=== PATIENT | male | born 1965 | race Caucasian/White ===

== ENCOUNTER 2017-12-13 10:51 | Inpatient (IN) | payer OTHER ==
[~2017-12-13] VITALS: Ht 170.2 cm; Wt 86.2 kg
--- NOTE | ~2017-12-13 | HC ---
[facility] [place] [address] CONSULTATION Name: KAY ALLEN Nayan Room #: 364-P [facility] M.R.#: [id number] Admission: 12/13/17 Attend Phys: Huy Jung MD Discharge: 12/14/17 Date of : 69 Report #: [id number] THIS REPORT FOR: //name// CC: Jeramie Jung REASON FOR CONSULTATION: Diaphoresis, chest pain. 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 Originally, underwent stenting in 2002 at the age of 38 when he presented with unstable angina. He had followup stenting of the diagonal branch in 2008 when he presented with midsternal chest discomfort, occurring during a softball game. His heart function is normal. He had a nonischemic stress study within the past month. Yesterday, he had abdominal bloating and took an Amitiza tablet, which in the past has created orthostatic hypotension. He was sitting on the commode and became intensely diaphoretic and lightheaded. This was associated with chest discomfort, somewhat different than what he experienced with his coronary artery disease. He did not pass out, although thought that he would. This episode happened about 2 hours after his Amitiza dose. Normally, he is active without limitation. He is recently back from an [place] trip, where he did walking and hiking without limitations. There have been no heart failure symptoms. No history of palpitations. ALLERGIES: He is allergic to AMOXICILLIN. MEDICATIONS: Include atorvastatin 80 mg daily, carvedilol 12.5 mg twice daily, chlorthalidone 25 mg daily, lisinopril 40 mg daily and Dilantin 100 mg daily. PAST MEDICAL HISTORY: His past history and medical records have been reviewed and include a history of coronary artery disease, epilepsy, nephrolithiasis, dyslipidemia, appendectomy. SOCIAL HISTORY: He is a former smoker. . FAMILY HISTORY: Notable for premature coronary artery disease. REVIEW OF SYSTEMS: All systems negative except as that noted above. PHYSICAL EXAMINATION: GENERAL: Reveals a pleasant gentleman in no distress. VITAL SIGNS: Blood pressure is 107/71, heart rate is 67 and regular. He is afebrile, 5 feet 7 inches tall, 190 pounds. HEENT: There are neither xanthelasma, subcutaneous xanthomata, oral mucosal or digital cyanosis or kyphoscoliosis present. CHEST: Clear to auscultation and percussion. CARDIAC: Reveals a regular rate and rhythm with normal S1, S2. [address] [address] CONSULTATION Name: KAY ALLEN Room #: 364-P [facility].#: [id number] Admission: 12/13/17 Attend Phys: Huy Jung MD Discharge: 12/14/17 Date of : 69 Report #: [id number] ABDOMEN: Soft and nontender. EXTREMITIES: Without cyanosis, clubbing or edema. Radial pulses are 2+. NEUROLOGIC: He is alert with a nonfocal exam. LABORATORY DATA: Multiple troponin levels are 0. Potassium 3.8, creatinine 1.1. White count 6.8, hemoglobin 12, hematocrit 35, platelet count 206. EKG is normal. Chest x-ray is normal. IMPRESSION: 1. Diaphoresis, near syncope, chest pain, likely related to Amitiza. 2. Coronary artery disease with prior stenting, very recent nonischemic nuclear stress study. 3. Hypertension. 4. Dyslipidemia. 5. Seizure disorder. RECOMMENDATIONS: 1. Discontinue Amitiza. 2. Continued efforts towards aggressive risk factor modification. Importance of maintaining hydration status discussed. This is now the second or third similar episodes, all occurring after taking an Amitiza dose. I suspect significant hypotension with this agent. I have reviewed his recent nuclear stress study, which demonstrated no ischemia. I have reassured him of this. Thank you for asking me to participate in the patient's care. <ELECTRONICALLY SIGNED> By: Jose Light MD, [facility] 12/15/17 0837 [id number] [id number] Jose Light MD, [facility] /nt
--- NOTE | ~2017-12-13 | EKG ---
[address] [address] ELECTROCARDIOGRAM REPORT Name: KAY ALLEN Room #: 364-P [facility] IN ..#: [id number] Admission: 12/13/17 Attend Phys: Huy Jung MD Discharge: Date of : 69 Report #: [id number] THIS REPORT FOR: //name// [facility] ED Test Date: 2017-12-13 Test Time: 10:53:32 Pat Name: KAY ALLEN Department: Room: Gender: M Physician/Ophthalmologist: : [id number] Requested By: Yair Perry Order Number: [id number] MD: Eran Jacobsen Measurements Intervals [place] Rate: 61 P: 32 NC: 165 QRS: 43 QRSD: 111 T: 26 QT: 408 QTc: 411 Interpretive Statements Sinus rhythm RSR' in V1 or V2, probably normal variant ST elev, probable normal early repol pattern No previous ECG available for comparison Electronically Signed On 12-13-2017 19:54:32 CDT by Eran Jacobsen [email or web address] <ELECTRONICALLY SIGNED> By: Eran Jacobsen MD 12/13/171953 52 52 Eran Jacobsen MD /ORLIN
[2017-12-13 10:55] VITALS: BP 102/69
[2017-12-13] MEDS ORDERED: DILANTIN100 MG PO (11:04)
[2017-12-13] MEDS ORDERED: PRINIVIL20 MG PO (11:04)
[2017-12-13] MEDS ORDERED: COREG12.5 MG PO (11:05)
[2017-12-13] MEDS ORDERED: CHLORTHALIDONE25 MG PO (11:05)
[2017-12-13] MEDS ORDERED: LIPITOR80 MG PO (11:06)
[2017-12-13 11:30] LABS: ABSOLUTE NEUTROPHILS 3.4 thou/uL (1.4-8.2); BASOPHILS 0.7 % (0.0-2.0); EOSINOPHILS 2.1 % (0.0-3.0); HEMATOCRIT 38.2 % (42.0-52.0); HEMOGLOBIN 13.1 gm/dL (14.0-18.0); LYMPHOCYTES 31.6 % (24.0-44.0); MCH 31.5 pg (26.0-34.0); MCHC 34.4 g/dL (28.0-37.0); MCV 91.3 fL (80.0-100.0); MONOCYTES 8.9 % (1.0-8.0); PLATELET COUNT 234 thou/uL (150-400); POLYS 56.7 % (36.0-66.0); RBC 4.18 mil/uL (4.50-6.00); RDW 12.6 % (10.5-14.5); WBC 6.1 thou/uL (4.0-11.0)
[2017-12-13 11:33] LABS: ANION GAP 9 mmol/L (7-16); BUN 27 mg/dL (7-18); CALCIUM 9.5 mg/dL (8.5-10.1); CHLORIDE 103 mmol/L (98-107); CO2 27 mmol/L (21-32); GLUCOSE 124 mg/dL (74-106); POTASSIUM 3.7 mmol/L (3.5-5.1); SODIUM 139 mmol/L (136-145)
[2017-12-13 11:42] LABS: TROPONIN-I < 0.04 ng/mL (<0.06)
[2017-12-13 12:40] VITALS: BP 97/61
[2017-12-13 13:20] VITALS: BP 99/61
[2017-12-13 13:56] VITALS: BP 110/68
[2017-12-13 16:09] VITALS: BP 102/68
[2017-12-13 19:40] VITALS: BP 115/62
[2017-12-14] VITALS: BP 108/74
[2017-12-14 04:20] VITALS: BP 106/63
[2017-12-14 06:38] LABS: HEMATOCRIT 35.3 % (42.0-52.0); HEMOGLOBIN 12.3 gm/dL (14.0-18.0); MCH 31.9 pg (26.0-34.0); MCV 91.3 fL (80.0-100.0); RBC 3.86 mil/uL (4.50-6.00); RDW 12.7 % (10.5-14.5); WBC 6.8 thou/uL (4.0-11.0)
[2017-12-14 06:53] LABS: ANION GAP 8 mmol/L (7-16); BUN 28 mg/dL (7-18); CALCIUM 8.8 mg/dL (8.5-10.1); CHLORIDE 102 mmol/L (98-107); CO2 27 mmol/L (21-32); CREATININE 1.1 mg/dL (0.7-1.3); GLUCOSE 101 mg/dL (74-106); POTASSIUM 3.8 mmol/L (3.5-5.1); SODIUM 137 mmol/L (136-145)
[2017-12-14 07:03] LABS: TROPONIN-I < 0.04 ng/mL (<0.06)
[2017-12-14 07:34] VITALS: BP 107/71
[2017-12-14] MEDS ORDERED: ASPIR 8181 MG PO (10:32)
[2017-12-14 11:01] VITALS: BP 107/71
== END 2017-12-14 11:21 | disposition home or self-care (01) | DRG 313 ==
LOC: ER 10:51 → EROBS 12:48 → 3W 13:21
PROVIDERS: Emergency Medicine; Hospitalist
DX: R07.9 Chest pain, unspecified (principal); I10 Essential (primary) hypertension; G40.909 Epilepsy, unspecified, not intractable, without status epilepticus; E78.5 Hyperlipidemia, unspecified; T47.2X5A Adverse effect of stimulant laxatives, initial encounter; R61 Generalized hyperhidrosis; R55 Syncope and collapse; I25.10 Atherosclerotic heart disease of native coronary artery without angina pectoris; I25.2 Old myocardial infarction; Z88.8 Allergy status to other drugs, medicaments and biological substances; Z79.899 Other long term (current) drug therapy; Z95.5 Presence of coronary angioplasty implant and graft; Z88.1 Allergy status to other antibiotic agents; Z87.891 Personal history of nicotine dependence; Y92.89 Other specified places as the place of occurrence of the external cause
CPT/HCPCS: 10779

== ENCOUNTER → 2018-06-27 | Outpatient (CLI) | payer OTHER ==
[~2018-06-27] MED LIST: ASPIR 8181 MG PO; CHLORTHALIDONE25 MG PO; COREG12.5 MG PO; DILANTIN100 MG PO; LIPITOR80 MG PO; PRINIVIL20 MG PO
== END ==
LOC: ULTRA 11:01
DX: I10 Essential (primary) hypertension (principal); N20.0 Calculus of kidney

== ENCOUNTER → 2019-04-14 | Outpatient (CLI) | payer OTHER | LOC: CAT 08:18 | DX: R10.31 Right lower quadrant pain (principal) ==